=== PATIENT | female | born 1970 | race Caucasian/White ===

== ENCOUNTER 2019-09-16 17:25 | Emergency (ER) | payer OTHER ==
[~2019-09-16] VITALS: Ht 162.6 cm; Wt 60.8 kg
[2019-09-16] MEDS ORDERED: PROZAC20 MG (17:38)
== END 2019-09-16 18:33 | disposition home or self-care (01) ==
LOC: ER 17:25
DX: L03.116 Cellulitis of left lower limb (principal)